=== PATIENT | female | born 1965 | race Hispanic/Latino ===

== ENCOUNTER 2025-09-29 10:28 | Outpatient (CLI) | payer OTHER | END 2025-09-29 10:29 | disposition home or self-care (01) | LOC: ULT 10:28 | PROVIDERS: ATTEND Nurse Practitioner | DX: R10.20 Pelvic and perineal pain unspecified side (principal); K76.89 Other specified diseases of liver; Z90.49 Acquired absence of other specified parts of digestive tract | CPT/HCPCS: 76700; 76856 ==